=== PATIENT | male | born 1985 | race African-American/Black ===

== ENCOUNTER 2023-03-28 15:58 | Emergency (ER) | payer MEDICAID ==
[~2023-03-28] VITALS: Ht 180.3 cm; Wt 77.3 kg
[2023-03-28 16:04] VITALS: BP 144/93
== END 2023-03-28 19:42 | disposition left against medical advice (07) ==
LOC: EMS 15:58
DX: Z53.21 Procedure and treatment not carried out due to patient leaving prior to being seen by health care provider (principal)
CPT/HCPCS: 99281; Z7502